=== PATIENT | female | born 2005 | race Caucasian/White ===

== ENCOUNTER 2025-04-11 15:52 | Emergency (ER) | payer OTHER, SELFPAY ==
[2025-04-11 15:52] VITALS: BMI 37.9
[2025-04-11 15:58] VITALS: BP 123/76
[2025-04-11 17:09] VITALS: BP 124/74
--- NOTE | 2025-04-11 18:01 | ED.SKININJ ---
HPI-Injury
General
Chief Complaint: Bite
Source: patient
Exam Limitations: none
Time Seen by Provider: 04/11/25 17:16
Nursing documentation reviewed up to this point in time: agreed with
History of Present Illness-Injury
Is this injury a work related problem?: No
Is pt an associate of [facility]?: No
Initial Injury comments:
Patient to the emergency department for evaluation after rescuing a feral kitten. Patient states that she was on the ground trying to catch the kitten when the kitten jumped up onto the bench and ran across her head. She felt that she was
scratched on her left cheek. She washed the area quickly afterwards but did not notice any broken skin. This occurred 2 days ago. Kitten was taken to the vet and diagnosed with a respiratory illness but is otherwise healthy. Patient came to the
emergency department on the advice of her mother for concern of possible rabies exposure. Kitten was discharged from the vet and is now living with her friend. Kitten is acting normally.
Past History
Past History
ED Past Medical History: None
Review of Systems
Review of Systems
Allergies reviewed?: Yes
All Other Systems: ROS reviewed and negative except as documented in HPI and ROS
Constitutional: Reports no symptoms
EENT: Reports no symptoms
Respiratory: Reports no symptoms
Cardiac: Reports no symptoms
ABD/GI: Reports no symptoms
: Reports no symptoms
Musculoskeletal: Reports no symptoms
Skin: Reports no symptoms (Patient was concerned that the cat may have scratched her when it ran across her face. No wounds were identified at the time of incident and today)
Neurological: Reports no symptoms
Psychiatric: Reports no symptoms
Phy Exam
General Physical Exam
General Presentation: well appearing and no apparent distress
General age: appears stated age
General Skin: warm and dry
General Habitus: normal
General Mental: alert
Neurological Exam
Neurological Exam: alert, oriented x3, no motor deficits, no sensory deficits and normal gait
Musculoskeletal Exam
Musculoskeletal Exam: full ROM
Skin Exam
Skin Exam: normal color, warm/dry and no rash
Psychiatric Exam
Psychiatric Exam: normal mood/affect
Course
Vital Signs
Initial and Last Documented VS:
Initial Vital Signs
Temp Pulse Resp BP Pulse Ox
98.2 F 72 14 123/76 98
04/11/25 15:58 04/11/25 15:58 04/11/25 15:58 04/11/25 15:58 04/11/25 15:58
Last Documented Vital Signs
Temp Pulse Resp BP Pulse Ox
98.2 F 68 16 124/74 99
04/11/25 15:58 04/11/25 17:09 04/11/25 17:09 04/11/25 17:09 04/11/25 17:09
*Pulse Oximetry
SaO2: 99
Oxygen Mode of Delivery: Room air
Patient hypoxic: no
*Critical Care Note
Total Time (30-74mins, 75-104mins- exclusive of procedures): Not Applicable
Update Note
Update Note:
Patient to the emergency department inquiring as to whether she needs to begin the rabies series. 2 days ago she rescued a feral kitten outside of her home. While she was on the ground trying to catch the kitten the kitten jumped up onto a bench
and then ran across to her head. Patient feels that she was scratched on the left cheek by the [employer] claw however no wound was identified after the incident. On exam today there are no wounds visible on her face. No evidence of any scratch
ayala. Kitten was evaluated by the vet. The kitten was diagnosed with a respiratory and infection but is otherwise healthy kitten was discharged and is living with her friend. Rabies vaccine is not indicated with this incident. There is no
evidence of a wound. There was no bite. Kitten is well, acting normally. Discussed this with patient and she is agreeable. Patient will be discharged home. She was advised to return to the emergency department if there is a change in the kitten
status otherwise she can follow-up with her family doctor.
ED Attending Note
-
Portions of this chart may have been created with voice recognition software.� Occasional wrong word or��sound alike� substitutions may have occurred due to the inherent limitations of voice recognition software.
Discharge Plan
Departure
Patient Disposition: Home (Routine Discharge)
Date of Disposition: 04/11/25
Time of Disposition: 18:00
Patient with high blood pressure during this ER visit?: No
Condition: Good
Covid-19: Not Applicable
Discharge Problem:
Well adult
Instructions: General
Prescriptions:
No Action
sertraline [Zoloft] 100 mg Tablet
100 mg PO DAILY
Referrals:
Watson Kilpatrick MD [Family Provider, Family Practice]
Activity Restrictions/Additional Instructions:
Follow-up with your family doctor as needed
Interventions
Interventions:
*General Assessment Last Done: 04/11/25 15:58
*Neglect/Abuse Screening Last Done: 04/11/25 15:58
*ED Influenza Vaccine History Last Done: 04/11/25 15:58
[facility] Fall Risk Assessment Tool Last Done: 04/11/25 15:52
*Risk Screen - Suicide (C-SSRS) Last Done: 04/11/25 15:58
ED-Skin Assessment Last Done: 04/11/25 17:10
Discharge Date and Time
Print Language: BHUTANESE
== END 2025-04-11 18:12 | disposition home or self-care (01) ==
LOC: EMR 15:52
PROVIDERS: EMERGENCY PHYSICIAN Emergency Medicine; FAMILY PHYSICIAN Family Medicine
DX: Z03.89 Encounter for observation for other suspected diseases and conditions ruled out (principal)
CPT/HCPCS: 99282